=== PATIENT | female | born 1965 | race Caucasian/White ===

== ENCOUNTER → 2016-11-23 | Outpatient (CLI) | payer OTHER ==
[~2016-11-23] MED LIST: MEDROL 4MG. DOSE4 MG PO
--- NOTE | 2016-11-29 10:08 | RADIOLOGY REPORT PS360 ---
STEROTATIC BX W/CLIP-RT, DIG MAMM-DX UNI-RT W/CAD ORDERING PHYSICIAN: Bucky Arita MD PATIENT AGE: 51 years HISTORY: Right-sided is visualized Breast calcifications PROCEDURE: The patient was given 0.5 mg of Xanax, Lortab 5 mg, and analgesia and minor sedation. The patient was placed on the stereotactic table and the abnormality was localized in the most appropriate projection. The breast was prepped in the routine manner, with sterile prep and the overlying skin anesthetized. A 3 to 4 mm skin incision was performed and the 9 gauge vacuum-assisted core biopsy needle was advanced to the region of the calcification. Pre- and post fire images were obtained. After adequate positioning relative to the calcifications was ensured, multiple biopsies were obtained in the region of the calcifications specifically. The core biopsies obtained were sent for specimen mammography. After the calcifications were indeed identified on the specimen mammogram, the procedure was terminated. The patient tolerated the procedure well without complications. Specimen was sent for pathologic analysis which should be forthcoming within 3 working days. Routine follow-up phone call to patient is to be performed as well. A tiny titanium nonferromagnetic MicroMark was positioned through the mammotome needle into the biopsy site. Pathology: Consistent with a sclerosing papilloma. Microcalcifications are present. Complete excision of the lesion is warranted per the pathologist SPECIMEN RADIOGRAPH: The mammographically evident calcifications from the prior study are currently evident within the Julita dish and within the specimens obtained during mammotome procedure. This is considered an adequate specimen and the procedure was terminated. IMPRESSION: Successful removal of described breast calcifications. Right BREAST MAMMOGRAM: Compared to the prior study, the previously noted calcification have been removed. A small MicroMark clip was inserted into the region of the calcifications. There is evidence of soft tissue changes in the region of the biopsy was soft tissue gas and edema. IMPRESSION: 1. Successful stereotactic vacuum-assisted core biopsy of the Right breast calcifications. 2. Successful placement of a titanium metal MicroMark. Recommendations: Surgical consult with excision of the surgical site around the placed biopsy clip
== END ==
LOC: RAD 10-26 10:00
PROC: 0H9T3ZX Drainage of Right Breast, Percutaneous Approach, Diagnostic (ICD-10-PCS; principal; 2016-11-23)
DX: N63 Unspecified lump in breast (principal)
CPT/HCPCS: G0206-RT

== ENCOUNTER → 2016-12-03 | Outpatient (CLI) | payer OTHER ==
[2016-12-03 08:41] LABS: HEMOGLOBIN 13.7 g/dL (12.2-16.2); LYMPH # 1.6 K/mm3 (0.7-4.5); LYMPH % 20.9 % (10-50.0)
[2016-12-03 09:36] LABS: BUN 8 mg/dL (7-18)
[2016-12-03 09:40] LABS: GFR (ESTIMATED) 88 ML/MIN (59-)
== END ==
LOC: LAB 08:18
PROVIDERS: Surgery
DX: R92.8 Other abnormal and inconclusive findings on diagnostic imaging of breast (principal); Z01.812 Encounter for preprocedural laboratory examination

== ENCOUNTER 2016-12-21 08:53 | Day surgery (SDC) | payer OTHER ==
[~2016-12-21] VITALS: Ht 167.6 cm; Wt 113.4 kg
--- NOTE | 2016-12-21 13:13 | Anesthesia Record ---
Anesthesia Record Part I Total IV fluids: 1500 EBL (ml): 5 Urine Output: 0 B/P: 123/73 % SaO2: 99 Pulse: 88 Resps: 16 Temp: 97.1 Patient is: Drowsy, Stable Stable to PACU at: 1310 at 1313
--- NOTE | 2016-12-21 13:14 | Anesthesia Record ---
Anesthesia Record Part II Discharge time: 1340 Destination: Same day surgery PACU nurse assessment review? Yes Patient is: Stable Anesthesia complications? No at 1312
--- NOTE | 2016-12-21 13:24 | Operative Note ---
Surgeon/Diagnoses Surgeon/[employer] Mechanic(s) Date of procedure: 12/21/16 Surgeon: Fabio Polo Diagnoses Pre-op diagnosis: RIGHT breast intraductal papilloma Post-op diagnosis Same Procedure Procedure Procedure: RIGHT breast excisional biopsy after wire localization Indications: TRENT ASHER is a 51 year-old Female with a history of abnormal mammogram. She underwent stereotactic biopsy by radiology with results showing intraductal papilloma. Recommendations were for excision. Plan was made for excision after wire localization. Findings: Very deep lesion. Fatty breast. Procedure Description: Patient was initially taken to radiology where she underwent placement of wire for localization of lesion or prior Hemoclip had been placed. She was then taken to the operating room. She was placed in a supine position. Gen. anesthesia was induced. RIGHT breast was prepped and draped in the standard surgical fashion. Skin incision was made along normal skin lines inferior and towards the nipple of where the wire penetrated the skin. Wire was then delivered through the wound. Dissection was carried down deep to where it was felt the lesion would be. Wire was delivered from the superficial fatty and breast tissue. Dissection was carried out deep around the tip of the wire which was rather difficult due to the lesion being in the deep retroareolar location specimen contained wire was then sent for specimen radiograph. This did reveal "density" within the central portion where the wire was located sent with prior lesion and biopsy site. However, previously placed stereotactic micro Hemoclip was not identified. Additional tissue was taken to an superficially inferiorly as an extended margin in the retroareolar location and additional tissue was taken deeply and inferior to the tip of the wire in the retro areolar location. Both of these specimens were sent for specimen radiograph which did not reveal Hemoclip present. It was felt that the area in question was present in the original specimen although the Hemoclip had been displaced. Wound was thoroughly irrigated. A couple of hemoclips were placed in the deep retroareolar location in the region of the abnormality to neftaly the area. Wound was thoroughly irrigated. Local anesthetic was infiltrated. There was good hemostasis. Subdermal tissues were closed with interrupted 2-0 Vicryl sutures. Skin was closed with 4-0 Monocryl subcuticular fashion. Clean dry sterile dressing was applied. Plan will be to evaluate the final specimen pathology. If biopsy cavity is present and benign it is felt that this is concordant. Tentatively would plan for follow-up mammogram in 6 months. EBL (ml): 25 Anesthesia: Gen. Specimens: RIGHT breast tissue Extended inferior margin (superficial) Extended inferior margin (deep) Disposition Disposition: To PACU at 1322
[2016-12-21 15:20] VITALS: BP 108/56
== END 2016-12-21 14:15 | disposition home or self-care (01) ==
LOC: SDC 08:53
PROVIDERS: Surgery
PROC: 0HBT0ZX Excision of Right Breast, Open Approach, Diagnostic (ICD-10-PCS; principal; 2016-12-21 11:00)
DX: D24.1 Benign neoplasm of right breast (principal)
CPT/HCPCS: G0206-RT; J0131; J2405